=== PATIENT | female | born 1990 | race Caucasian/White ===

== ENCOUNTER 2017-02-24 04:55 | Inpatient (IN) | payer OTHER ==
[2017-02-24] MEDS ORDERED: Methylergonovine 0.2 MG/1 ML Amp IM PRN (07:41)
[2017-02-24] MEDS ORDERED: Nalbuphine 10 MG/1 ML Vial IVPUSH PRN (07:41)
[2017-02-24] MEDS ORDERED: Butorphanol 1 MG/ML SDV IVPUSH PRN (07:41)
[2017-02-24] MEDS ORDERED: Lidocaine 1% 50 ML MDV INJECT PRN (07:41)
[2017-02-24] MEDS ORDERED: Carboprost Tromethamine 250 MCG/1 ML Amp IM PRN (07:41)
[2017-02-24] MEDS ORDERED: Sodium Chloride 0.9% 2.5 ML Syringe FLUSH PRN (07:41)
[2017-02-24] MEDS ORDERED: Water For Irrigation,Sterile 1,000 ML Container IRR PRN (07:41)
[2017-02-24] MEDS ORDERED: Sodium Chloride 0.9% 10 ML Syringe FLUSH PRN (07:41)
[2017-02-24] MEDS ORDERED: Misoprostol 200 MCG Tab PO PRN (07:41)
[2017-02-24] MEDS ORDERED: Oxytocin/Lactated Ringers 30 UNIT/500 ML BAG IV SCH ×2 (07:45→13:15)
[2017-02-24] MEDS: Lactated Ringers 1,000 ML IV SCH ×4 (07:56→16:41)
[2017-02-24] MEDS ORDERED: fentaNYL 100 MCG/2 ML SDV ONE (08:21)
[2017-02-24] MEDS ORDERED: Ropivacaine 0.2% 2 MG/ML 20 ML SDV ONE (08:22)
--- NOTE | 2017-02-24 09:06 | PCM.PREANE ---
Preanesthetic Assessment - Anesthesia/Transfusion/Family Hx Anesthesia History: No Prior Anesthesia Family History of Anesthesia Reaction: No Transfusion History: No Prior Transfusion(s) - Review of Systems General: No Symptoms Pulmonary: No Symptoms Cardiovascular: No Symptoms Gastrointestinal: No symptoms Neurological: No Symptoms Other: Reports: None - Physical Assessment Height: 1.68 m Weight: 88.904 kg ASA Class: 2 Mental Status: Alert & Oriented x3 Dentition: Reports: Normal Dentition ROM/Head Extension: Full - Lab Values: Laboratory Last Values WBC 13.27 K/uL (4.0-11.0) H 02/24/17 07:56 RBC 4.27 M/uL (4.30-5.90) L 02/24/17 07:56 Hgb 13.0 g/dL (12.0-16.0) 02/24/17 07:56 Hct 38.3 % (36.0-46.0) 02/24/17 07:56 MCV 89.7 fL (80.0-98.0) 02/24/17 07:56 MCH 30.4 pg (27.0-32.0) 02/24/17 07:56 MCHC 33.9 g/dL (31.0-37.0) 02/24/17 07:56 RDW Std Deviation 43.6 fl (28.0-62.0) 02/24/17 07:56 RDW Coeff of [place] 13 % (11.0-15.0) 02/24/17 07:56 Plt Count 231 K/uL (150-400) 02/24/17 07:56 MPV 10.60 fL (7.40-12.00) 02/24/17 07:56 Nucleated RBC % 0.0 /100WBC 02/24/17 07:56 Nucleated RBCs # 0 K/uL 02/24/17 07:56 - Allergies Allergies/Adverse Reactions: Allergies Allergy/AdvReac Type Severity Reaction Status Date / Time No Known Allergies Allergy Verified 02/24/17 05:27 - Acknowledgements Anesthesia Type Planned: Epidural Pt an Appropriate Candidate for the Planned Anesthesia: Yes Alternatives and Risks of Anesthesia Discussed w Pt/Guardian: Yes Pt/Guardian Understands and Agrees with Anesthesia Plan: Yes 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: Reports: Spontaneous - SUBSTANCE USE Smoking Status *Q: Never Smoker Second Hand Smoke Exposure: No Recreational Drug Use History: No - CURRENT (IN HOUSE) MEDS Current Meds: Current Medications Butorphanol Tartrate (Stadol) 1 mg IVPUSH Q1H PRN PRN Reason: Pain Carboprost Tromethamine (Hemabate Ds) 250 mcg IM ASDIRECTED PRN PRN Reason: Post Hemorrhage Lactated Ringer's (Ringers, Lactated) 1,000 mls @ 150 mls/hr IV ASDIRECTED [place]ANKLIN Last Admin: 02/24/17 08:45 Dose: 999 mls/hr Lidocaine HCl (Xylocaine 1%) 50 ml INJECT .ONCE PRN PRN Reason: Laceration repair Methylergonovine Maleate (Methergine) 0.2 mg IM ASDIRECTED PRN PRN Reason: Post Hemorrhage Misoprostol (Cytotec) 200 mcg PO .ONCE PRN PRN Reason: Post Hemorrhage Nalbuphine HCl (Nubain) 10 mg IVPUSH Q1H PRN PRN Reason: Pain (severe 7-10) Stop: 02/24/17 09:42 Sodium Chloride (Saline Flush) 10 ml FLUSH ASDIRECTED PRN PRN Reason: Keep Vein Open Sodium Chloride (Saline Flush) 2.5 ml FLUSH ASDIRECTED PRN PRN Reason: Keep Vein Open Sterile Water (Sterile Water For Irrigation) 1,000 ml IRR ASDIRECTED PRN PRN Reason: delivery Discontinued Medications Fentanyl (Sublimaze) Confirm Administered Dose 100 mcg .ROUTE .STK-MED ONE Stop: 02/24/17 08:22 Oxytocin/Lactated Ringer's (Pitocin In Lr 30 Units/500 Ml) 30 unit in 500 mls @ 999 mls/hr IV TITRATE [place]; 999 MUNITS/MIN PRN Reason: Protocol Stop: 02/24/17 08:16 Ropivacaine/Fentanyl/NS (Fentanyl 2 Mcg-Ropiv 0.2%-Ns) Confirm Administered Dose 100 mls @ as directed .ROUTE .STK-MED ONE Stop: 02/24/17 08:21 Ropivacaine (Naropin 0.2%) Confirm Administered Dose 20 ml .ROUTE .STK-MED ONE Stop: 02/24/17 08:23
--- NOTE | 2017-02-24 18:54 | PCM.SN ---
- Free Text/Narrative Note: Called because "air in epidural line." Upon arrival, epidural bag was empty so replaced with same Ropivacaine 0.2% with Fentanyl 200 mcg and same rate/ parameters as before as RN and pt stated epidural was working well.
[2017-02-24] MEDS ORDERED: Acetaminophen 500 MG Tab ONE (20:23)
[2017-02-24] MEDS ORDERED: oxyCODONE 5 MG Tab PO PRN (22:03)
[2017-02-24] MEDS ORDERED: Bisacodyl 10 MG Supp RECTAL PRN (22:03)
[2017-02-24] MEDS ORDERED: Lanolin 100% Cream 7 GM Tube TOP PRN (22:03)
[2017-02-24] MEDS ORDERED: Witch Hazel Medicated Pads 40/Jar TOP PRN (22:03)
[2017-02-24] MEDS ORDERED: Acetaminophen 500 MG Tab PO PRN ×2 (22:03)
[2017-02-24] MEDS ORDERED: Benzocaine/Menthol 20%-0.5% Spray 78 GM Cannister TOP PRN (22:03)
--- NOTE | 2017-02-25 03:51 | OR ---
SURGEON: Jesika Saenz DATE OF PROCEDURE: 02/24/2017 BRIEF PRE-DELIVERY HISTORY: This is a 27-year-old G2, P0, presented to Labor and Delivery with complaints of regular uterine contractions and spontaneous rupture of membranes. On admission, the patient was noted to be 6 cm dilated, 90% effaced, and -1 station. The patient was examined approximately 5 hours later and cervix was noted to be essentially unchanged and the patient underwent spontaneous rupture of membranes for clear fluid and was augmented on IV Pitocin. On exam approximately 4 to 5 hours later, the patient was found to be 9 cm dilated, 90% effaced, and 0 station by nursing staff. The patient eventually progressed to complete status and started maternal expulsive efforts. At the time of maternal expulsive efforts, the patient was noted to have a low-grade fever up to 100.2 evident mostly by tachycardia. heart tracing was noted to be in the 170s to 180s for baseline, but the fetus tolerated maternal expulsive efforts. Mother was given Tylenol 1 g for low-grade temperature and hopefully, to affect heart tracing baseline. PREOPERATIVE DIAGNOSES: 1. Intrauterine at 39 weeks and 4 days. 2. Group B streptococcus negative. 3. Active labor with augmentation. POSTOPERATIVE DIAGNOSES: 1. Intrauterine at 39 weeks and 4 days. 2. Delivered status. 3. Left vaginal sidewall laceration. 4. Midline second-degree perineal laceration. PROCEDURE PERFORMED: 1. Spontaneous-assisted vaginal delivery. 2. Repair of left vaginal sidewall laceration. 3. Repair of midline second-degree perineal laceration. ANESTHESIA: Epidural and local. ESTIMATED BLOOD LOSS: 250 mL. FINDINGS: Viable male in vertex presentation with score of 8 and 9 at 1 and 5 minutes respectively and weight was unavailable at the time of dictation. Of note, mom was bonding with the baby and still entertaining skin to skin contact. Normal intact placenta with 3-vessel cord. Left vaginal sidewall laceration. Midline second-degree perineal laceration. SPECIMEN REMOVED: Placenta. CONDITION: Postoperatively, the patient and tolerated the procedure well. COMPLICATIONS: None known. DESCRIPTION OF PROCEDURE: This female under epidural anesthesia delivered a viable male infant with score of 8 and 9 at 1 and 5 minutes respectively and weight unavailable at the time of dictation. Delivery was via spontaneous assisted vaginal delivery with infant in vertex presentation. Upon delivery of vertex, the neck was checked. There was no nuchal to be reduced and with gentle downward traction, the anterior shoulder was delivered with minimal effort followed by the body. The was bulb suctioned at delivery and placed directly on mom's abdomen and had a vigorous cry secondary to maternal request. Cord clamping was delayed until cessation of pulsations. Eventually, the cord was doubly clamped and cut. Cord blood was collected and sent for analysis. After delivery of , IV Pitocin was given as uterotonic to prevent excessive maternal blood loss and help expel the placenta. With signs of placental separation, a gentle fundal massage was given along with traction on the umbilical cord and a normal intact placenta with 3-vessel cord was delivered. After delivery of and placenta, the vagina, perineum, and rectum were explored and the patient had a small right periurethral laceration that was noted to be hemostatic and the patient had a left vaginal sidewall laceration that was vigorously bleeding along with a midline second-degree perineal laceration that was noted to also be bleeding. The left vaginal sidewall laceration was repaired with 3-0 Vicryl suture in a running, locked fashion for excellent hemostasis at the end of the repair. Midline second- degree perineal laceration was repaired with 3-0 Vicryl suture in the usual 3- layer fashion. After repair, the lower uterine segment vagina was cleared of all clots and debris. The patient was cleansed, pads were changed, and the bed was returned to functioning status. The patient and tolerated the procedure well. Sponge, lap, needle, and instrument counts were correct. There were no known complications. Of note, addendum to above, prior to repair, the perineal skin was tested and the patient had some sensation, so 1% lidocaine plain was used to infiltrate the perineal tissues to completely anesthetize mom prior to repair. ELLA / EMILY /[id number] MAGO
[2017-02-25] MEDS: Ibuprofen 800 MG Tab PO PRN ×2 (08:24→17:09)
[2017-02-25] MEDS: Docusate Sodium 100 MG Cap PO PRN (08:25)
--- NOTE | 2017-02-25 10:40 | PCM48HPAN ---
Post Anesthesia Note - EVALUATION WITHIN 48HRS OF ANESTHETIC Vital Signs in Normal Range: Yes Patient Participated in Evaluation: Yes Respiratory Function Stable: Yes Airway Patent: Yes Cardiovascular Function Stable: Yes Hydration Status Stable: Yes Pain Control Satisfactory: Yes Nausea and Vomiting Control Satisfactory: Yes Mental Status Recovered: Yes - COMMENTS/OBSERVATIONS Free Text/Narrative:: States appetite is low but is still eating and denies any other concerns.
--- NOTE | 2017-02-25 15:33 | PCM.PNPP ---
- General Info Date of Service: 02/25/17 Functional Status: Reports: pain controlled, tolerating diet, ambulating, urinating - Review of Systems General: Reports: No Symptoms HEENT: Reports: no symptoms Pulmonary: Reports: no symptoms Cardiovascular: Reports: No Symptoms Gastrointestinal: Reports: No symptoms, Flatus Genitourinary: Reports: no symptoms Musculoskeletal: Reports: no symptoms Skin: Reports: no symptoms Neurological: Reports: No Symptoms Psychiatric: Reports: no symptoms - General Info Date of Service: 02/25/17 - Patient Data Vital Signs - most recent: Last Vital Signs Temp 36.4 C 02/25/17 08:00 Pulse 114 H 02/25/17 08:00 Resp 20 02/25/17 08:00 BP 102/65 02/25/17 08:00 Pulse Ox 96 02/25/17 08:00 Weight - most recent: 88.904 kg Lab Results - last 24 hrs: Laboratory Results - last 24 hr 02/25/17 Range/Units 05:55 Hgb 11.5 L (12.0-16.0) g/dL Hct 34.3 L (36.0-46.0) % Med Orders - Current: Current Medications Acetaminophen (Tylenol Extra Strength) 500 mg PO Q4H PRN PRN Reason: Pain Acetaminophen (Tylenol Extra Strength) 1,000 mg PO Q4H PRN PRN Reason: Pain Benzocaine/Menthol (Dermoplast Pain Relief 20%-0.5% [place]) 78 gm TOP ASDIRECTED PRN PRN Reason: Perineal Comfort Measure Last Admin: 02/25/17 08:23 Dose: 1 canister Bisacodyl (Dulcolax) 10 mg RECTAL .ONCE PRN PRN Reason: Constipation Butorphanol Tartrate (Stadol) 1 mg IVPUSH Q1H PRN PRN Reason: Pain Carboprost Tromethamine (Hemabate Ds) 250 mcg IM ASDIRECTED PRN PRN Reason: Post Hemorrhage Docusate Sodium (Colace) 100 mg PO BID PRN PRN Reason: Constipation Last Admin: 02/25/17 08:25 Dose: 100 mg Emollient Ointment (Lansinoh Hpa) 0 gm TOP ASDIRECTED PRN PRN Reason: Sore Nipples Last Admin: 02/25/17 08:24 Dose: 1 tube Lactated Ringer's (Ringers, Lactated) 1,000 mls @ 150 mls/hr IV ASDIRECTED [place]ANKLIN Last Admin: 02/24/17 16:41 Dose: 150 mls/hr Oxytocin/Lactated Ringer's (Pitocin In Lr 30 Units/500 Ml) 30 unit in 500 mls @ 2 mls/hr IV TITRATE [place]; 2 MUNITS/MIN PRN Reason: Protocol Last Titration: 02/24/17 21:18 Dose: 999 munits/min, 999 mls/hr Ibuprofen (Motrin) 800 mg PO Q6H PRN PRN Reason: Pain Last Admin: 02/25/17 08:24 Dose: 800 mg Lidocaine HCl (Xylocaine 1%) 50 ml INJECT .ONCE PRN PRN Reason: Laceration repair Last Admin: 02/24/17 21:23 Dose: 50 ml Methylergonovine Maleate (Methergine) 0.2 mg IM ASDIRECTED PRN PRN Reason: Post Hemorrhage Misoprostol (Cytotec) 200 mcg PO .ONCE PRN PRN Reason: Post Hemorrhage Oxycodone HCl (Oxycodone) 5 mg PO Q2H PRN PRN Reason: Pain Sodium Chloride (Saline Flush) 10 ml FLUSH ASDIRECTED PRN PRN Reason: Keep Vein Open Sodium Chloride (Saline Flush) 2.5 ml FLUSH ASDIRECTED PRN PRN Reason: Keep Vein Open Sterile Water (Sterile Water For Irrigation) 1,000 ml IRR ASDIRECTED PRN PRN Reason: delivery Last Admin: 02/24/17 21:18 Dose: 1,000 ml Witch Shelbi (Tucks) 1 pad TOP ASDIRECTED PRN PRN Reason: comfort care Last Admin: 02/25/17 08:22 Dose: 1 tub Discontinued Medications Acetaminophen (Tylenol Extra Strength) Confirm Administered Dose 1,000 mg .ROUTE .STK-MED ONE Stop: 02/24/17 20:24 Last Admin: 02/24/17 20:25 Dose: 1,000 mg Fentanyl (Sublimaze) Confirm Administered Dose 100 mcg .ROUTE .STK-MED ONE Stop: 02/24/17 08:22 Last Admin: 02/25/17 11:16 Dose: Not Given Oxytocin/Lactated Ringer's (Pitocin In Lr 30 Units/500 Ml) 30 unit in 500 mls @ 999 mls/hr IV TITRATE [place]; 999 MUNITS/MIN PRN Reason: Protocol Stop: 02/24/17 08:16 Last Admin: 02/25/17 11:18 Dose: Not Given Ropivacaine/Fentanyl/NS (Fentanyl 2 Mcg-Ropiv 0.2%-Ns) Confirm Administered Dose 100 mls @ as directed .ROUTE .STK-MED ONE Stop: 02/24/17 08:21 Last Admin: 02/25/17 11:17 Dose: Not Given Ropivacaine/Fentanyl/NS (Fentanyl 2 Mcg-Ropiv 0.2%-Ns) Confirm Administered Dose 100 mls @ as directed .ROUTE .STK-MED ONE Stop: 02/24/17 18:42 Last Admin: 02/25/17 11:18 Dose: Not Given Nalbuphine HCl (Nubain) 10 mg IVPUSH Q1H PRN PRN Reason: Pain (severe 7-10) Stop: 02/24/17 09:42 Ropivacaine (Naropin 0.2%) Confirm Administered Dose 20 ml .ROUTE .STK-MED ONE Stop: 02/24/17 08:23 Last Admin: 02/25/17 11:18 Dose: Not Given - Interaction Infant Disposition, : in Room with Family Interaction: Holding Infant Infant Feeding: Attempted ; Nursed Fair/Poor Support Person: - Recovery Exam Fundal Tone: Firm Fundal Level: 1 Fingerbreadths Below Umbilicus Fundal Placement: Midline Lochia Amount: Scant Lochia Color: Rubra/Red Perineum Description: Other (see below) Other Perinuem Description: 2nd degree laceration with repair Episiotomy/Laceration: Approximated Bladder Status: Voiding Urinary Elimination: Voided - Exam General: alert, oriented Neck: supple Lungs: Clear to auscultation, Normal respiratory effort Cardiovascular: Regular Rate, Regular Rhythm Abdomen: bowel sounds present, soft, no tenderness Extremities: no calf tenderness Skin: warm, dry, intact Neurological: no new focal deficit Psy/Mental Status: alert, normal affect, normal mood - Problem List & Annotations (1) Normal vaginal delivery SNOMED Code(s): 51890949 Code(s): O80 - ENCOUNTER FOR FULL-TERM UNCOMPLICATED DELIVERY Status: Acute Current Visit: Yes - Problem List Review Problem List Initiated/Reviewed/Updated: Yes - My Orders Last 24 Hours: My Active Orders 02/24/17 22:03 Patient Status [ADT] Routine May Shower [RC] ASDIRECTED Up ad Mira [RC] ASDIRECTED Vital Signs [RC] PER UNIT ROUTINE Acetaminophen [Tylenol Extra Strength] 1,000 mg PO Q4H PRN Acetaminophen [Tylenol Extra Strength] 500 mg PO Q4H PRN Benzocaine/Menthol [Dermoplast Pain Relief 20%-0.5% [place]] 78 gm TOP ASDIRECTED PRN Bisacodyl [Dulcolax] 10 mg RECTAL .ONCE PRN Docusate Sodium [Colace] 100 mg PO BID PRN Ibuprofen [Motrin] 800 mg PO Q6H PRN Lanolin [Lansinoh HPA] See Dose Instructions TOP ASDIRECTED PRN Witch Shelbi [Tucks] 1 pad TOP ASDIRECTED PRN oxyCODONE 5 mg PO Q2H PRN Assess Lochia [WOMSER] Per Unit Routine Assess Uterine Involution [WOMSER] Per Unit Routine Breast Pump [WOMSER] Per Unit Routine Peripheral IV Discontinue [OM.PC] Routine 02/24/17 22:07 Ice Therapy [OM.PC] Per Unit Routine Perineal Care [OM.PC] Per Unit Routine Sitz Bath [OM.PC] Per Unit Routine 02/24/17 Dinner Regular Diet [DIET] - Assessment Assessment:: PPD#1 S/p SAVD Doing well OOB ambulating and voiding - Plan Plan:: Increase ambulation Routine care
[2017-02-26] MEDS: Ibuprofen 800 MG Tab PO PRN (06:37)
[2017-02-26] MEDS: Docusate Sodium 100 MG Cap PO PRN (06:38)
--- NOTE | 2017-02-26 08:46 | PCM.PNPP ---
- General Info Date of Service: 02/26/17 Functional Status: Reports: pain controlled, tolerating diet, ambulating, urinating - Review of Systems General: Reports: No Symptoms HEENT: Reports: no symptoms Pulmonary: Reports: no symptoms Cardiovascular: Reports: No Symptoms Gastrointestinal: Reports: No symptoms, Flatus Genitourinary: Reports: no symptoms Musculoskeletal: Reports: no symptoms Skin: Reports: no symptoms Neurological: Reports: No Symptoms Psychiatric: Reports: no symptoms - General Info Date of Service: 02/26/17 - Patient Data Vital Signs - most recent: Last Vital Signs Temp 36.2 C 02/26/17 04:00 Pulse 69 02/26/17 04:00 Resp 14 02/26/17 04:00 BP 97/47 L 02/26/17 04:00 Pulse Ox 98 02/26/17 04:00 Weight - most recent: 88.904 kg Med Orders - Current: Current Medications Acetaminophen (Tylenol Extra Strength) 500 mg PO Q4H PRN PRN Reason: Pain Acetaminophen (Tylenol Extra Strength) 1,000 mg PO Q4H PRN PRN Reason: Pain Benzocaine/Menthol (Dermoplast Pain Relief 20%-0.5% [place]) 78 gm TOP ASDIRECTED PRN PRN Reason: Perineal Comfort Measure Last Admin: 02/25/17 08:23 Dose: 1 canister Bisacodyl (Dulcolax) 10 mg RECTAL .ONCE PRN PRN Reason: Constipation Butorphanol Tartrate (Stadol) 1 mg IVPUSH Q1H PRN PRN Reason: Pain Carboprost Tromethamine (Hemabate Ds) 250 mcg IM ASDIRECTED PRN PRN Reason: Post Hemorrhage Docusate Sodium (Colace) 100 mg PO BID PRN PRN Reason: Constipation Last Admin: 02/26/17 06:38 Dose: 100 mg Emollient Ointment (Lansinoh Hpa) 0 gm TOP ASDIRECTED PRN PRN Reason: Sore Nipples Last Admin: 02/25/17 08:24 Dose: 1 tube Lactated Ringer's (Ringers, Lactated) 1,000 mls @ 150 mls/hr IV ASDIRECTED [place]LIN Last Admin: 02/24/17 16:41 Dose: 150 mls/hr Oxytocin/Lactated Ringer's (Pitocin In Lr 30 Units/500 Ml) 30 unit in 500 mls @ 2 mls/hr IV TITRATE [place]; 2 MUNITS/MIN PRN Reason: Protocol Last Titration: 02/24/17 21:18 Dose: 999 munits/min, 999 mls/hr Ibuprofen (Motrin) 800 mg PO Q6H PRN PRN Reason: Pain Last Admin: 02/26/17 06:37 Dose: 800 mg Lidocaine HCl (Xylocaine 1%) 50 ml INJECT .ONCE PRN PRN Reason: Laceration repair Last Admin: 02/24/17 21:23 Dose: 50 ml Methylergonovine Maleate (Methergine) 0.2 mg IM ASDIRECTED PRN PRN Reason: Post Hemorrhage Misoprostol (Cytotec) 200 mcg PO .ONCE PRN PRN Reason: Post Hemorrhage Oxycodone HCl (Oxycodone) 5 mg PO Q2H PRN PRN Reason: Pain Sodium Chloride (Saline Flush) 10 ml FLUSH ASDIRECTED PRN PRN Reason: Keep Vein Open Sodium Chloride (Saline Flush) 2.5 ml FLUSH ASDIRECTED PRN PRN Reason: Keep Vein Open Sterile Water (Sterile Water For Irrigation) 1,000 ml IRR ASDIRECTED PRN PRN Reason: delivery Last Admin: 02/24/17 21:18 Dose: 1,000 ml Witch Shelbi (Tucks) 1 pad TOP ASDIRECTED PRN PRN Reason: comfort care Last Admin: 02/25/17 08:22 Dose: 1 tub Discontinued Medications Acetaminophen (Tylenol Extra Strength) Confirm Administered Dose 1,000 mg .ROUTE .STK-MED ONE Stop: 02/24/17 20:24 Last Admin: 02/24/17 20:25 Dose: 1,000 mg Fentanyl (Sublimaze) Confirm Administered Dose 100 mcg .ROUTE .STK-MED ONE Stop: 02/24/17 08:22 Last Admin: 02/25/17 11:16 Dose: Not Given Oxytocin/Lactated Ringer's (Pitocin In Lr 30 Units/500 Ml) 30 unit in 500 mls @ 999 mls/hr IV TITRATE [place]; 999 MUNITS/MIN PRN Reason: Protocol Stop: 02/24/17 08:16 Last Admin: 02/25/17 11:18 Dose: Not Given Ropivacaine/Fentanyl/NS (Fentanyl 2 Mcg-Ropiv 0.2%-Ns) Confirm Administered Dose 100 mls @ as directed .ROUTE .STK-MED ONE Stop: 02/24/17 08:21 Last Admin: 02/25/17 11:17 Dose: Not Given Ropivacaine/Fentanyl/NS (Fentanyl 2 Mcg-Ropiv 0.2%-Ns) Confirm Administered Dose 100 mls @ as directed .ROUTE .STK-MED ONE Stop: 02/24/17 18:42 Last Admin: 02/25/17 11:18 Dose: Not Given Nalbuphine HCl (Nubain) 10 mg IVPUSH Q1H PRN PRN Reason: Pain (severe 7-10) Stop: 02/24/17 09:42 Ropivacaine (Naropin 0.2%) Confirm Administered Dose 20 ml .ROUTE .STK-MED ONE Stop: 02/24/17 08:23 Last Admin: 02/25/17 11:18 Dose: Not Given - Infant Interaction Infant Disposition, : in Room with Family Interaction: Holding Feeding: Attempted ; Nursed Fair/Poor Support Person: - Recovery Exam Fundal Tone: Firm Fundal Level: 1 Fingerbreadths Below Umbilicus Fundal Placement: Midline Lochia Amount: Scant Lochia Color: Rubra/Red Perineum Description: Intact, Minimal Bruising/Swelling Other Perinuem Description: 2nd degree laceration with repair Episiotomy/Laceration: Approximated Bladder Status: Voiding Urinary Elimination: Voided - Exam General: alert, oriented Neck: supple Lungs: Clear to auscultation, Normal respiratory effort Cardiovascular: Regular Rate, Regular Rhythm Abdomen: bowel sounds present, soft, no tenderness Extremities: no calf tenderness Skin: warm, dry, intact Neurological: no new focal deficit Psy/Mental Status: alert, normal affect, normal mood - Problem List & Annotations (1) Normal vaginal delivery SNOMED Code(s): 61122950 Code(s): O80 - ENCOUNTER FOR FULL-TERM UNCOMPLICATED DELIVERY Status: Acute Current Visit: Yes - Problem List Review Problem List Initiated/Reviewed/Updated: Yes - My Orders Last 24 Hours: My Active Orders 02/26/17 23:00 Ready for Discharge [RC] PER UNIT ROUTINE - Assessment Assessment:: PPD#2 S/p SAVD Doing well OOB ambulating and voiding Difficulty breast feeding - Plan Plan:: Dsicharge home today with followup in 6wks Pelvic rest for 6wks Call for increased heavy bleeding of > 1pad per hr Call for temp. >100.4 x 2 Thromboembolic precautions given blues/depression precautions given
[2017-02-26 18:13] VITALS: BP 104/58
== END 2017-02-26 18:00 | disposition home or self-care (01) | DRG 775 ==
LOC: MW.OBCHECK 04:55 → MW.OB 05:00 → MW.OBCHECK 07:37 → OBSVTOIN 22:03 → MW.OB 02-25
PROVIDERS: ADMIT Obstetrics & Gynecology; ATTEND Obstetrics & Gynecology
PROC: 10E0XZZ Delivery of Products of Conception, External Approach (ICD-10-PCS; principal; 2017-02-24)
PROC: 0KQM0ZZ Repair Perineum Muscle, Open Approach (ICD-10-PCS; 2017-02-24)
DX: O42.02 Full-term premature rupture of membranes, onset of labor within 24 hours of rupture (principal); O70.1 Second degree perineal laceration during delivery; Z3A.39 39 weeks gestation of pregnancy; Z37.0 Single live birth
CPT/HCPCS: 01967; 36415; 59025; 85014; 85018; 85027; 86850; 86900; 86901; A9270-GY; J7120

== ENCOUNTER 2017-06-03 02:10 | Emergency (ER) | payer OTHER ==
[2017-06-03] MEDS ORDERED: Promethazine 25 MG/ML SDV IM ONE (02:29)
[2017-06-03] MEDS ORDERED: Nalbuphine 10 MG/1 ML Vial IM ONE (02:29)
--- NOTE | 2017-06-03 03:27 | EDM.PDOC ---
ED HPI GENERAL MEDICAL PROBLEM - General Chief Complaint: General Stated Complaint: UPPER BACK PAIN Time Seen by Provider: 06/03/17 02:30 Source of Information: Reports: Patient, RN - History of Present Illness INITIAL COMMENTS - FREE TEXT/NARRATIVE: she has mid to upper back pain without obvious cause. It started about last bedtime. back Pain Score (Numeric/FACES): 8 - Related Data Allergies Allergy/AdvReac Type Severity Reaction Status Date / Time No Known Allergies Allergy Verified 06/03/17 02:21 Home Meds: Home Meds . 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: , Spontaneous Musculoskeletal History: Reports: None Neurological History: Reports: None Psychiatric History: Reports: None Endocrine/Metabolic History: Reports: None Hematologic History: Reports: None Oncologic (Cancer) History: Reports: None Dermatologic History: Reports: None - Infectious Disease History Infectious Disease History: Reports: Chicken Pox - Past Surgical History Female Surgical History: Reports: None Social & Family History - Family History Family Medical History: Noncontributory - Tobacco Use Smoking Status *Q: Never Smoker Second Hand Smoke Exposure: No - Caffeine Use Caffeine Use: Reports: Soda - Recreational Drug Use Recreational Drug Use: No ED ROS GENERAL - Review of Systems Review Of Systems: See Below (no trauma; no urinary complaints; no fever) ED EXAM, GENERAL - Physical Exam Exam: See Below Free Text/Narrative:: she appears u ncomfortable no CVAT lungs CTA mild muscular tenderness medial to the left scapula; pain with active and passive movement of the left scapula General Appearance: Alert Course - Vital Signs Last Recorded V/S: Last Vital Signs Temp 97.3 F 06/03/17 02:21 Pulse 77 06/03/17 02:21 Resp 18 06/03/17 02:21 BP 126/56 L 06/03/17 02:21 Pulse Ox 99 06/03/17 02:21 - Orders/Labs/Meds Meds: Medications Discontinued Medications Generic Name Dose Route Start Last Admin Trade Name Freq PRN Reason Stop Dose Admin Nalbuphine HCl 20 mg 06/03/17 02:29 06/03/17 02:36 Nubain IM 06/03/17 02:30 20 mg ONETIME ONE Administration Promethazine HCl 25 mg 06/03/17 02:29 06/03/17 02:39 Phenergan IM 06/03/17 02:30 25 mg ONETIME ONE Administration - Re-Assessments/Exams Free Text/Narrative Re-Assessment/Exam: 06/03/17 03:37 after nubain she felt much better. Departure - Departure Time of Disposition: 03:37 Disposition: Home, Self-Care 01 Condition: Good Clinical Impression: Muscle spasm - Discharge Information Referrals: PCP,None [Primary Care Provider] - Additional Instructions: percocet is for short term use as it may be habit forming, sedating and constipating do not use tylenol with percocet follow up if not improved within a few days.
[2017-06-03 07:31] VITALS: BP 108/55
== END 2017-06-03 06:05 | disposition home or self-care (01) ==
LOC: MW.ED 02:10
DX: M62.830 Muscle spasm of back (principal)
CPT/HCPCS: 96372; 99283; J2300; J2550; 99282